=== PATIENT | female | born 1980 | race Caucasian/White ===

== ENCOUNTER 2017-11-15 04:10 | Emergency (ER) | payer BC, OTHER ==
[~2017-11-15] VITALS: Ht 162.6 cm; Wt 112.0 kg
[2017-11-15 04:12] VITALS: BP 136/87
--- NOTE | 2017-11-15 04:26 | NUR ---
PT TAKEN TO BED 10
[2017-11-15] MEDS: HYDROcodone/APAP 10/325 MG 1 TAB TAB PO STA (05:11)
[2017-11-15] MEDS: KETOROLAC 30 MG/ML VIAL IM ONE (05:11)
--- NOTE | 2017-11-15 05:44 | NUR ---
X-Ray at bedside.
[2017-11-15 05:55] LABS: APPEARANCE,URINE HAZY (CLEAR); BILIRUBIN,URINE 1+ (NEGATIVE); BLOOD, URINE 3+ (NEGATIVE); LEUKOCYTE ESTERASE ,URINE 1+ (NEGATIVE); NITRITE, URINE NEGATIVE (NEGATIVE); UGLUCOSE NEGATIVE (NEGATIVE)
[2017-11-15 05:56] LABS: COLOR,URINE AMBER (YELLOW)
--- NOTE | 2017-11-15 06:03 | NUR ---
C/O LEFT SIDED FLANK PAIN RADIATING TO LOWER ABD/SUPRAPUBIC AREA W/URINARY BURNING AND FREQUENCY X1 WEEK. ABD IS ROUND, SOFT, NON TENDER, ACTIVE BS X4. PT DENIES N/V/D. PT STATES SHE TOOK IBUPROFEN W/ MINIMAL RELIEF. HX: ASTHMA, DM, KIDNEY STONES STENT PLACEMENT FOR KIDNEY STONES
[2017-11-15 06:11] LABS: WBC,URINE 6-15 (FEW) /HPF (0-5)
[2017-11-15 06:13] LABS: RBC,URINE 20-50 /HPF (0-5)
[2017-11-15 06:40] VITALS: BP 120/71
--- NOTE | 2017-11-15 06:41 | NUR ---
Patient discharged with v/s stable. Written and verbal after care instructions given and explained. Patient alert, oriented and verbalized understanding of instructions. Ambulatory with steady gait. All questions addressed prior to discharge. ID band removed. Patient advised to follow up with PMD. Rx of IBUPROFEN, NORCO, CIPRO given. Patient educated on indication of medication including possible reaction and side effects. Opportunity to ask questions provided and answered. PT ADVISED NOT TO DRIVE, AND WILL HAVE DRIVE HER HOME. Addendum: 11/15/17 at 0652 by [facility] PT WAS WHEEL CHAIR ASSISTED TO CAR, BY JANI
== END 2017-11-15 06:41 | disposition home or self-care (01) ==
LOC: MED 04:10
DX: N23 Unspecified renal colic (principal); R31.9 Hematuria, unspecified; J45.909 Unspecified asthma, uncomplicated; E11.9 Type 2 diabetes mellitus without complications; F17.210 Nicotine dependence, cigarettes, uncomplicated; Z88.2 Allergy status to sulfonamides; Z88.0 Allergy status to penicillin
CPT/HCPCS: 74018; 81001; 81025; 82948; 87086; 96372; 99285; J1885; Q0092